=== PATIENT | male | born 1955 | race Asian ===

== ENCOUNTER 2018-03-26 12:36 | Emergency (ER) | payer OTHER ==
[~2018-03-26] VITALS: Ht 162.6 cm; Wt 69.9 kg
[2018-03-26 12:40] VITALS: BP 144/77
[2018-03-26] MEDS ORDERED: traMADol 50 MG TAB PO ONE (13:25)
[2018-03-26] MEDS ORDERED: IBUPROFEN 600 MG TAB PO ONE (13:25)
[2018-03-26] MEDS ORDERED: NEOMYCIN/POLYMYXIN/BACITRACIN 0.9 GM/1 PKT TP ONE (13:25)
[2018-03-26 14:27] VITALS: BP 130/105
== END 2018-03-26 14:28 | disposition home or self-care (01) ==
LOC: MED 12:36
DX: S52.592A Other fractures of lower end of left radius, initial encounter for closed fracture (principal); E78.5 Hyperlipidemia, unspecified; W01.0XXA Fall on same level from slipping, tripping and stumbling without subsequent striking against object, initial encounter; Y93.89 Activity, other specified; Y92.89 Other specified places as the place of occurrence of the external cause; Y99.8 Other external cause status
CPT/HCPCS: 73090; 73130; 90471; 90715; 99284

== ENCOUNTER 2020-03-20 03:40 | Emergency (ER) | payer OTHER ==
[~2020-03-20] VITALS: Ht 162.6 cm; Wt 52.2 kg
[2020-03-20 03:42] VITALS: BP 185/91
[2020-03-20] MEDS ORDERED: LIDOCAINE 2% 1000 MG/50 ML VIAL INJ ONE (04:00)
--- NOTE | 2020-03-20 04:03 | NUR ---
64 Y/O MALE C/O FINGER LAC TO LEFT INDEX FINGER TIP THAT OCCURED LAST NIGHT AT 630PM; LEFT INDEX FINGER TIP IS SWOLLEN,BRUISED, RED , WITH VREY MINIMAL BLEEDING, WHICH IS CONTROLLED AT THIS TIME; PT ABLE TO WIGGLE FINGERS AND NO DECREASE IN SENSATION; DENIES N/V/D; SKIN IS PINK/WARM/DRY; AAOX4 WITH EVEN AND STEADY GAIT; HR EVEN AND REGULAR; PT DENIES ANY FEVER, CP, SOB, OR COUGH AT THIS TIME; PATIENT STATES PAIN OF 4/10 AT THIS TIME; VSS; PATIENT POSITIONED FOR COMFORT; HOB ELEVATED; BEDRAILS UP X1; BED DOWN AND LOCKED. ER MADE AWARE OF PT STATUS. PMH: PT DENIES NKA
--- NOTE | 2020-03-20 04:10 | NUR ---
PT SIGNED TDAP VACCINE CONSENT
--- NOTE | 2020-03-20 04:22 | NUR ---
PT IN BED IN POSITION OF COMFORT, BED LOW AND LOCKED, SIDERAILS UP , VSS, WILL CONTINUE TO MONITOR
--- NOTE | 2020-03-20 04:44 | NUR ---
XRAY AT BEDSIDE FOR PORTABLE XRAY
--- NOTE | 2020-03-20 05:08 | NUR ---
PT RESTING IN BED IN POSITION OF COMFORT, BED LOW AND LOCKED, SIDERAILS UP, VSS, WILL CONTINUE TO MONITOR
--- NOTE | 2020-03-20 06:48 | NUR ---
PT RESTING IN BED IN POSITION OF COMFORT, BED LOW AND LOCKED, SIDERAILS UP, VSS, WILL CONTINUE TO MONITOR
[2020-03-20] MEDS ORDERED: BACITRACIN OINT 500 UNITS/GM PKT TP ONE ×2 (06:50→06:51)
[2020-03-20 06:55] VITALS: BP 180/88
== END 2020-03-20 06:56 | disposition home or self-care (01) ==
LOC: MED 03:40
DX: S61.211A Laceration without foreign body of left index finger without damage to nail, initial encounter (principal); W20.8XXA Other cause of strike by thrown, projected or falling object, initial encounter; Y93.89 Activity, other specified; Y92.89 Other specified places as the place of occurrence of the external cause; Y99.8 Other external cause status
CPT/HCPCS: 12002; 73130; 90471; 90715; 99283; J2001; Q0092

== ENCOUNTER 2020-03-23 11:36 | Emergency (ER) | payer OTHER ==
[~2020-03-23] VITALS: Ht 162.6 cm; Wt 51.3 kg
[2020-03-23 11:37] VITALS: BP 150/80
--- NOTE | 2020-03-23 11:37 | NUR ---
Patient ambulated to bed 6. RN evaluating patient at bedside.
--- NOTE | 2020-03-23 11:45 | NUR ---
64/M here in ED for a wound check. Pt was seen here and had sutures placed to left index finger. Pt denies any fever or chills. Denies pain. Sutures are clean, intact. No drainage noted. Bandage removed. Pt tolerated well.
--- NOTE | 2020-03-23 11:56 | NUR ---
Pt moved to chair C.
--- NOTE | 2020-03-23 12:18 | NUR ---
Dr. Nye is re-evaluating the patient at bedside.
--- NOTE | 2020-03-23 12:21 | NUR ---
Wound care completed by EMT.
[2020-03-23] MEDS ORDERED: BACITRACIN OINT 500 UNITS/GM PKT TP ONE ×2 (12:23→12:30)
[2020-03-23 12:26] VITALS: BP 150/80
== END 2020-03-23 12:26 | disposition home or self-care (01) ==
LOC: MED 11:36
DX: S61.211D Laceration without foreign body of left index finger without damage to nail, subsequent encounter (principal); X58.XXXD Exposure to other specified factors, subsequent encounter
CPT/HCPCS: 99282

== ENCOUNTER 2020-03-30 12:40 | Emergency (ER) | payer OTHER ==
[~2020-03-30] VITALS: Ht 162.6 cm; Wt 52.2 kg
[2020-03-30 12:44] VITALS: BP 112/68
--- NOTE | 2020-03-30 12:47 | NUR ---
PATIENT AMBULATED TO BED 1.
--- NOTE | 2020-03-30 13:00 | NUR ---
RECHECK FOR L HAND 2ND DIGIT SUTURES PLACED AT [facility] 03/20/20. C/D/I. PT DENIES PAIN.
--- NOTE | 2020-03-30 13:11 | NUR ---
DR. KAPOOR AT BEDSIDE REMOVING SUTURES
[2020-03-30 13:19] VITALS: BP 112/68
--- NOTE | 2020-03-30 13:20 | NUR ---
Patient discharged with v/s stable. Written and verbal after care instructions given and explained. Patient alert, oriented and verbalized understanding of instructions. Ambulatory with steady gait. All questions addressed prior to discharge. ID band removed. Patient advised to follow up with PMD.
== END 2020-03-30 13:20 | disposition home or self-care (01) ==
LOC: MED 12:40
DX: S61.211D Laceration without foreign body of left index finger without damage to nail, subsequent encounter (principal); X58.XXXD Exposure to other specified factors, subsequent encounter
CPT/HCPCS: 99281